=== PATIENT | male | born 1940 | race Caucasian/White ===

== ENCOUNTER 2018-08-09 16:40 | Inpatient (IN) ==
[2018-08-09] MEDS ORDERED: Ipratropium/Albuterol Neb 3 ML IH ONE (17:10)
--- NOTE | 2018-08-09 17:15 | Emergency Department Note ---
Disposition Clinical Impression: Cough Disposition: Still a Patient Condition: Good Referrals: Faye Sepulveda ETCHER HAND [Primary Care Provider] - Forms: ED Satisfaction Letter Time of Disposition: 19:09 General Adult HPI - General Chief complaint: ED Shortness of Breath/Dyspnea Stated complaint: Pneumonia,TAMMY Time Seen by Provider: 08/09/18 16:57 Source: patient Mode of arrival: ambulatory Limitations: no limitations - History of Present Illness HPI Narrative: This is a 78-year-old male with no significant past medical history who comes to emergency department stating that he has had a cough for 3 weeks, went to urgent care 4 days ago and received some symptomatic treatment, including prednisolone and an albuterol inhaler, then saw his regular doctor yesterday. Regular doctor stated that he appeared to have a left sided pneumonia and started him on levofloxacin. He reports no improvement in the cough and states that he has not been able to sleep for the last 7 days or so. Pain Scale: 0 - Related Data Home Medications Medication Instructions Recorded Confirmed Atenolol 08/06/18 Cinnamon 08/06/18 Coq10 08/06/18 Dyazide 08/06/18 Januvia 08/06/18 Lisinopril 08/06/18 Norvasc 08/06/18 Simvastatin 08/06/18 Turmeric 08/06/18 Vitamin C 08/06/18 Vitamin D3 08/06/18 Vitamin E 08/06/18 metFORMIN 08/06/18 Previous Rx's Medication Instructions Recorded Promethazine/Dextromethorphan 5 ml PO Q6HR PRN #120 ml 08/06/18 [Promethazine-Dm Syrup] cephALEXin [Keflex] 500 mg PO QID #40 capsule 08/06/18 methylPREDNISolone [Medrol] 4 mg PO TAPER #21 tablet 08/06/18 Allergies Allergy/AdvReac Type Severity Reaction Status Date / Time Tetanus Vaccines and Toxoid Allergy Hives Verified 08/09/18 16:46 All systems ED: reviewed and negative except as stated. Respiratory: Reports: cough, dyspnea Past Medical History - Past Medical History Medical history: Reports: diabetes, hypertension Psychiatric history: Reports: no psych history - Social History Smoking Status: Never smoker Smokeless Tobacco Status: No Alcohol use: Reports: none Physical Exam - General Limitations: no limitations General appearance: alert, in no apparent distress - Head Head exam: atraumatic, normocephalic, normal inspection - Eye Eye exam: Present: normal appearance, PERRL, EOMI - Chest Chest inspection: Present: normal inspection, symmetric chest wall rise - Respiratory Respiratory exam: Present: other (There are rhonchi in the left apex and base, coarse crackles in the right apex and base). Absent: respiratory distress, wheezes - Cardiovascular Cardiovascular exam: Present: regular rate, normal rhythm, normal heart sounds - Abdominal Exam Abdominal exam: Present: soft, Non-Tender. Absent: tenderness, distention, guarding, rebound, rigidity - Extremities Exam Extremities exam: Present: normal inspection, full ROM. Absent: tenderness, pedal edema - Neurological Exam Neurological exam: Present: alert, oriented X3 - Psychiatric Psychiatric exam: Present: normal affect, normal mood - Skin Skin exam: Present: warm, dry, intact, normal color Course Course Narrative: This is a 78-year-old male previously diagnosed with pneumonia but still with cough and shortness of breath. Vital Signs Temperature 97.8 F 08/09/18 16:43 Pulse Rate 82 08/09/18 16:43 Respiratory Rate 16 08/09/18 16:43 Blood Pressure 192/89 08/09/18 16:43 O2 Sat by Pulse Oximetry 88 08/09/18 16:43 Temperature 97.8 F 08/09/18 16:43 Pulse Rate 82 08/09/18 16:43 Respiratory Rate 16 08/09/18 17:48 Blood Pressure 192/89 08/09/18 16:43 O2 Sat by Pulse Oximetry 93 08/09/18 17:48 Oxygen Delivery Oxygen Delivery Room Air Medical Decision Making - [facility] Narrative Medical decision making narrative: This is a 78-year-old male with a persistent cough for 3 weeks it was provisionally diagnosed as possible pneumonia given a chest x-ray obtained 4 days ago. When I look at the chest x-ray, I find it quite unimpressive. Because of concern for a possible serious etiology, I ordered a chest CT with contrast. Patient was signed out to Dr. Munson and coworkers at 7 PM. - Lab Data Lab results reviewed: Yes I reviewed the patient's lab results. Lab results narrative: CBC shows leukocytosis of 14.8 thrombocytosis at 49.6 D-dimer was below threshold at 404 Result diagrams: 08/09/18 17:18 08/09/18 17:18 Lab Results 08/09/18 08/09/18 08/09/18 Range/Units 17:18 17:18 17:18 WBC 14.8 H (4.3-11.1) K/mcL RBC 5.53 H (4.19-5.50) M/mcL Hgb 15.9 (12.9-16.9) g/dL Hct 46.9 (37.5-50.1) % MCV 84.8 (83.0-100.0) fL MCH 28.8 (28.0-33.3) pg MCHC 33.9 (31.6-35.5) g/dL RDW 13.0 (11.5-14.5) % Plt Count 496 H (140-400) K/mcL MPV 9.5 (9.4-12.4) fL Immature Gran % 0.6 (0-4) % Seg Neutrophils % 82.4 % Lymphocytes % 10.0 % Monocytes % 6.1 % Eosinophils % 0.6 % Basophils % 0.3 % Neutrophils # 12.2 H (1.6-8.9) K/mcL Lymphocytes # 1.5 (0.6-4.6) K/mcL Monocytes # 0.9 (0.0-1.3) K/mcL Eosinophils # 0.1 (0.0-0.6) K/mcL Basophils # 0.1 (0.0-0.2) K/mcL D-Dimer (0-500) ng/mLFEU Sodium 138 (136-145) mEq/L Potassium 3.8 (3.5-5.1) mEq/L Chloride 98 (98-107) mEq/L Carbon Dioxide 29 (23-29) mEq/L BUN 19 (8-23) mg/dL Creatinine 1.15 (0.70-1.30) mg/dL Est GFR ( Amer) > 60 (> 60) Est GFR (Non-Af Amer) > 60 (> 60) BUN/Creatinine Ratio 17 (6-26) Glucose 240 H (70-105) mg/dL Calculated Osmolality 296 (280-300) Lactic Acid 1.6 (0.5-2.2) mmol/L Calcium 9.8 (8.6-10.3) mg/dL Troponin I < 0.03 (< 0.04) ng/mL 09/11/18 Range/Units 17:20 WBC (4.3-11.1) K/mcL RBC (4.19-5.50) M/mcL Hgb (12.9-16.9) g/dL Hct (37.5-50.1) % MCV (83.0-100.0) fL MCH (28.0-33.3) pg MCHC (31.6-35.5) g/dL RDW (11.5-14.5) % Plt Count (140-400) K/mcL MPV (9.4-12.4) fL Immature Gran % (0-4) % Seg Neutrophils % % Lymphocytes % % Monocytes % % Eosinophils % % Basophils % % Neutrophils # (1.6-8.9) K/mcL Lymphocytes # (0.6-4.6) K/mcL Monocytes # (0.0-1.3) K/mcL Eosinophils # (0.0-0.6) K/mcL Basophils # (0.0-0.2) K/mcL D-Dimer 404 (0-500) ng/mLFEU Sodium (136-145) mEq/L Potassium (3.5-5.1) mEq/L Chloride (98-107) mEq/L Carbon Dioxide (23-29) mEq/L BUN (8-23) mg/dL Creatinine (0.70-1.30) mg/dL Est GFR ( Amer) (> 60) Est GFR (Non-Af Amer) (> 60) BUN/Creatinine Ratio (6-26) Glucose (70-105) mg/dL Calculated Osmolality (280-300) Lactic Acid (0.5-2.2) mmol/L Calcium (8.6-10.3) mg/dL Troponin I (< 0.04) ng/mL - EKG Data EKG #1 EKG attestation: Yes I reviewed and interpreted this EKG. EKG results narrative: ECG shows a sinus rhythm, right axis deviation, 79 bpm, right bundle branch block, no ST abnormalities
[2018-08-09 17:38] LABS: Basophils # 0.1 K/mcL (0.0-0.2); Basophils % 0.3 %; Eosinophils # 0.1 K/mcL (0.0-0.6); Eosinophils % 0.6 %; Hematocrit 46.9 % (37.5-50.1); Hemoglobin 15.9 g/dL (12.9-16.9); Immature Granulocytes % 0.6 % (0-4); Lymphocytes # 1.5 K/mcL (0.6-4.6); Mean Corpuscular HGB Conc 33.9 g/dL (31.6-35.5); Mean Corpuscular Hemoglobin 28.8 pg (28.0-33.3); Mean Corpuscular Volume 84.8 fL (83.0-100.0); Mean Platelet Volume 9.5 fL (9.4-12.4); Monocytes # 0.9 K/mcL (0.0-1.3); Monocytes % 6.1 %; Neutrophils # 12.2 K/mcL (1.6-8.9); Platelet Count 496 K/mcL (140-400); Red Blood Count 5.53 M/mcL (4.19-5.50); Segmented Neutrophils % 82.4 %
[2018-08-09 17:59] LABS: BUN/Creatinine Ratio 17 (6-26); Blood Urea Nitrogen 19 mg/dL (8-23); Calcium 9.8 mg/dL (8.6-10.3); Carbon Dioxide 29 mEq/L (23-29); Chloride 98 mEq/L (98-107); Glucose 240 mg/dL (70-105); Osmolality,Calculated 296 (280-300); Potassium 3.8 mEq/L (3.5-5.1); Sodium 138 mEq/L (136-145); Troponin I < 0.03 ng/mL (< 0.04); eGFR For Non-African Americans > 60 (> 60)
[2018-08-09] MEDS ORDERED: Isovue-370 500 ML INFUS..BTL IV ONE (18:09)
--- NOTE | 2018-08-09 19:07 | Emergency Department Note ---
Disposition Clinical Impression: Cough, Hypoxia Community acquired pneumonia Qualifiers: Laterality: unspecified laterality Qualified Code(s): J18.9 - Pneumonia, unspecified organism Disposition: Admitted As Inpatient Condition: Good Referrals: Faye Sepulveda CNP [Primary Care Provider] - Forms: ED Satisfaction Letter Time of Disposition: 20:07 General Adult HPI - General Chief complaint: ED Shortness of Breath/Dyspnea Stated complaint: Pneumonia,TAMMY Time Seen by Provider: 08/09/18 16:57 Source: patient Mode of arrival: ambulatory Limitations: no limitations Nursing Notes Reviewed: Yes Vital Signs Reviewed: Yes - History of Present Illness HPI Narrative: Patient was signed out to me by Dr. Shafer pending CT imaging and final disposition. Please see his note for further details. Pain Scale: 0 - Related Data Home Medications Medication Instructions Recorded Confirmed Atenolol 08/06/18 Cinnamon 08/06/18 Coq10 08/06/18 Dyazide 08/06/18 Januvia 08/06/18 Lisinopril 08/06/18 Norvasc 08/06/18 Simvastatin 08/06/18 Turmeric 08/06/18 Vitamin C 08/06/18 Vitamin D3 08/06/18 Vitamin E 08/06/18 metFORMIN 08/06/18 Previous Rx's Medication Instructions Recorded Promethazine/Dextromethorphan 5 ml PO Q6HR PRN #120 ml 08/06/18 [Promethazine-Dm Syrup] cephALEXin [Keflex] 500 mg PO QID #40 capsule 08/06/18 methylPREDNISolone [Medrol] 4 mg PO TAPER #21 tablet 08/06/18 Allergies Allergy/AdvReac Type Severity Reaction Status Date / Time Tetanus Vaccines and Toxoid Allergy Hives Verified 08/09/18 16:46 All systems ED: reviewed and negative except as stated. Respiratory: Reports: cough, dyspnea Past Medical History - Past Medical History Attestation: Yes The following information was validated with the patient. Source: patient, obtained from family Medical history: Reports: diabetes, hypertension Psychiatric history: Reports: no psych history - Social History Smoking Status: Never smoker Smokeless Tobacco Status: No Alcohol use: Reports: none Physical Exam - General Limitations: no limitations General appearance: alert, in no apparent distress - Head Head exam: atraumatic, normocephalic, normal inspection - Eye Eye exam: Present: normal appearance, PERRL, EOMI - ENT ENT exam: normal exam, normal oropharynx, mucous membranes moist - Neck Neck exam: Present: normal inspection, full ROM, trachea midline - Chest Chest inspection: Present: normal inspection, symmetric chest wall rise - Respiratory Respiratory exam: Present: other (hypoxia). Absent: respiratory distress, wheezes - Expanded Respiratory Exam Location: rales: Right, Left, Lower, rhonchi: Lower, Right, Left - Cardiovascular Cardiovascular exam: Present: regular rate, normal rhythm, normal heart sounds - Abdominal Exam Abdominal exam: Present: soft, Non-Tender, normal bowel sounds. Absent: tenderness, distention, guarding, rebound, rigidity - Extremities Exam Extremities exam: Present: normal inspection, full ROM, normal capillary refill. Absent: tenderness, pedal edema - Back Exam Back exam: Present: normal inspection, full ROM. Absent: tenderness - Neurological Exam Neurological exam: Present: alert, oriented X3 - Expanded Neurological Exam Coma Scale Eye Opening: Spontaneous Coma Scale Motor Response: Obeys Commands Coma Scale Verbal Response: Oriented Coma Scale Total: 15 - Psychiatric Psychiatric exam: Present: normal affect, normal mood - Skin Skin exam: Present: warm, dry, intact, normal color. Absent: rash, cyanosis, diaphoresis Course Course Narrative: Patient was signed out to me by Dr. Shafer pending CT imaging and final disposition. Please see his note for further details. In short, Jesus is a 78-year-old male who come to emergency department with a cough for several weeks. Recently diagnosed with possible pneumonia versus atelectasis at urgent care and placed on Zpak with medrol dose pack and inhaler. Reported no improvement. He saw his primary care provider yesterday and was prescribed levofloxacin in which he has only taken one day worth. Review of his labs shows a mild leukocytosis. His chest x-ray shows possible actelectasis. CT of the chest with contrast was ordered to better evaluate for any further etiology. - Reevaluation(s) Reevaluation #1: CT scan confirms bilateral pneumonia. On reevaluation patient is hypoxic 88% on room air after breathing treatment. Crackles to bilateral bases. Placing him on 2 liter nasal cannula has brought his oxygen level up to 94%. Patient is non-septic appearing. He is awake alert and oriented to person place and time. Patient has a history of hypertension and is due for his amlodipine 10 mg and his atenolol 50 mg. Given his symptoms patient would benefit admission and further management. Patient took a dose of Levaquin orally this morning at 6 AM. Will continue with oral medication on admission. Patient also recently finished azithromycin prior to starting Levaquin. No recent hospitalization. Impression is community acquired pneumonia and hypoxia. Time: 20:05 - Consultations Consultation #1: Spoke with on-call hospitalist dago Parker to admit for CAP and hypoxia. Agrees with continuing oral Levaquin. Requesting blood cultures understanding patient has already taken 1st dose this morning. Time: 20:18 Vital Signs Temperature 97.8 F 08/09/18 16:43 Pulse Rate 82 08/09/18 16:43 Respiratory Rate 16 08/09/18 16:43 Blood Pressure 192/89 08/09/18 16:43 O2 Sat by Pulse Oximetry 88 08/09/18 16:43 Temperature 97.8 F 08/09/18 16:43 Pulse Rate 82 08/09/18 16:43 Respiratory Rate 16 08/09/18 17:48 Blood Pressure 192/89 08/09/18 16:43 O2 Sat by Pulse Oximetry 93 08/09/18 17:48 Oxygen Delivery Oxygen Delivery Room Air Medical Decision Making - MDM Narrative Medical decision making narrative: Patient was discussed with my attending physician who agrees with ED management and final disposition. They independently evaluated the patient. Please refer to their attestation to this encounter for additional information. This note was generated by [employer] voice recognition software and as a result grammatical or spelling errors may occur using this program. - Medical Records Medical records reviewed: Yes I reviewed the patient's medical records. - Lab Data Lab results reviewed: Yes I reviewed the patient's lab results. Result diagrams: 08/09/18 17:18 08/09/18 17:18 Lab Results 08/09/18 08/09/18 08/09/18 Range/Units 17:18 17:18 17:18 WBC 14.8 H (4.3-11.1) K/mcL RBC 5.53 H (4.19-5.50) M/mcL Hgb 15.9 (12.9-16.9) g/dL Hct 46.9 (37.5-50.1) % MCV 84.8 (83.0-100.0) fL MCH 28.8 (28.0-33.3) pg MCHC 33.9 (31.6-35.5) g/dL RDW 13.0 (11.5-14.5) % Plt Count 496 H (140-400) K/mcL MPV 9.5 (9.4-12.4) fL Immature Gran % 0.6 (0-4) % Seg Neutrophils % 82.4 % Lymphocytes % 10.0 % Monocytes % 6.1 % Eosinophils % 0.6 % Basophils % 0.3 % Neutrophils # 12.2 H (1.6-8.9) K/mcL Lymphocytes # 1.5 (0.6-4.6) K/mcL Monocytes # 0.9 (0.0-1.3) K/mcL Eosinophils # 0.1 (0.0-0.6) K/mcL Basophils # 0.1 (0.0-0.2) K/mcL D-Dimer (0-500) ng/mLFEU Sodium 138 (136-145) mEq/L Potassium 3.8 (3.5-5.1) mEq/L Chloride 98 (98-107) mEq/L Carbon Dioxide 29 (23-29) mEq/L BUN 19 (8-23) mg/dL Creatinine 1.15 (0.70-1.30) mg/dL Est GFR ( Amer) > 60 (> 60) Est GFR (Non-Af Amer) > 60 (> 60) BUN/Creatinine Ratio 17 (6-26) Glucose 240 H (70-105) mg/dL Calculated Osmolality 296 (280-300) Lactic Acid 1.6 (0.5-2.2) mmol/L Calcium 9.8 (8.6-10.3) mg/dL Troponin I < 0.03 (< 0.04) ng/mL 08/09/18 Range/Units 17:20 WBC (4.3-11.1) K/mcL RBC (4.19-5.50) M/mcL Hgb (12.9-16.9) g/dL Hct (37.5-50.1) % MCV (83.0-100.0) fL MCH (28.0-33.3) pg MCHC (31.6-35.5) g/dL RDW (11.5-14.5) % Plt Count (140-400) K/mcL MPV (9.4-12.4) fL Immature Gran % (0-4) % Seg Neutrophils % % Lymphocytes % % Monocytes % % Eosinophils % % Basophils % % Neutrophils # (1.6-8.9) K/mcL Lymphocytes # (0.6-4.6) K/mcL Monocytes # (0.0-1.3) K/mcL Eosinophils # (0.0-0.6) K/mcL Basophils # (0.0-0.2) K/mcL D-Dimer 404 (0-500) ng/mLFEU Sodium (136-145) mEq/L Potassium (3.5-5.1) mEq/L Chloride (98-107) mEq/L Carbon Dioxide (23-29) mEq/L BUN (8-23) mg/dL Creatinine (0.70-1.30) mg/dL Est GFR ( Amer) (> 60) Est GFR (Non-Af Amer) (> 60) BUN/Creatinine Ratio (6-26) Glucose (70-105) mg/dL Calculated Osmolality (280-300) Lactic Acid (0.5-2.2) mmol/L Calcium (8.6-10.3) mg/dL Troponin I (< 0.04) ng/mL - Radiology Data Radiology results reviewed: Yes I reviewed the patient's radiology results. Chest CT 08/09/18 18:09 IMPRESSION: Scattered bilateral airspace disease which likely represents pneumonia. Consider follow-up chest CT in 3 months to ensure resolution. D/ / En Villa MD / En Villa MD Interpreting Provider: En Villa MD
[2018-08-09] MEDS ORDERED: amLODIPine 5 MG TABLET PO STA (20:08)
--- NOTE | 2018-08-09 20:18 | Emergency Department Note ---
Disposition Clinical Impression: Cough, Community acquired pneumonia, Hypoxia Disposition: Admitted As Inpatient Condition: Good Referrals: Faye Sepulveda BEE RAISER [Primary Care Provider] - Forms: ED Satisfaction Letter General Adult HPI - General Chief complaint: ED Shortness of Breath/Dyspnea Stated complaint: Pneumonia,TAMMY Time Seen by Provider: 08/09/18 16:57 Source: patient Mode of arrival: ambulatory Limitations: no limitations Nursing Notes Reviewed: Yes Vital Signs Reviewed: Yes - History of Present Illness Pain Scale: 0 - Related Data Home Medications Medication Instructions Recorded Confirmed Atenolol 08/06/18 Cinnamon 08/06/18 Coq10 08/06/18 Dyazide 08/06/18 Januvia 08/06/18 Lisinopril 08/06/18 Norvasc 08/06/18 Simvastatin 08/06/18 Turmeric 08/06/18 Vitamin C 08/06/18 Vitamin D3 08/06/18 Vitamin E 08/06/18 metFORMIN 08/06/18 Previous Rx's Medication Instructions Recorded Promethazine/Dextromethorphan 5 ml PO Q6HR PRN #120 ml 08/06/18 [Promethazine-Dm Syrup] cephALEXin [Keflex] 500 mg PO QID #40 capsule 08/06/18 methylPREDNISolone [Medrol] 4 mg PO TAPER #21 tablet 08/06/18 Allergies Allergy/AdvReac Type Severity Reaction Status Date / Time Tetanus Vaccines and Toxoid Allergy Hives Verified 08/09/18 16:46 Respiratory: Reports: cough, dyspnea Past Medical History - Past Medical History Medical history: Reports: diabetes, hypertension Psychiatric history: Reports: no psych history - Social History Smoking Status: Never smoker Smokeless Tobacco Status: No Alcohol use: Reports: none Physical Exam - General Limitations: no limitations General appearance: alert, in no apparent distress Course Vital Signs Temperature 97.8 F 08/09/18 16:43 Pulse Rate 82 08/09/18 16:43 Respiratory Rate 16 08/09/18 16:43 Blood Pressure 192/89 08/09/18 16:43 O2 Sat by Pulse Oximetry 88 08/09/18 16:43 Temperature 97.8 F 08/09/18 16:43 Pulse Rate 82 08/09/18 16:43 Respiratory Rate 16 08/09/18 17:48 Blood Pressure 192/89 08/09/18 16:43 O2 Sat by Pulse Oximetry 93 08/09/18 17:48 Oxygen Delivery Oxygen Delivery Room Air Medical Decision Making - Medical Records Medical records reviewed: Yes I reviewed the patient's medical records. - Lab Data Lab results reviewed: Yes I reviewed the patient's lab results. Result diagrams: 08/09/18 17:18 08/09/18 17:18 Lab Results 08/09/18 08/09/18 08/09/18 Range/Units 17:18 17:18 17:18 WBC 14.8 H (4.3-11.1) K/mcL RBC 5.53 H (4.19-5.50) M/mcL Hgb 15.9 (12.9-16.9) g/dL Hct 46.9 (37.5-50.1) % MCV 84.8 (83.0-100.0) fL MCH 28.8 (28.0-33.3) pg MCHC 33.9 (31.6-35.5) g/dL RDW 13.0 (11.5-14.5) % Plt Count 496 H (140-400) K/mcL MPV 9.5 (9.4-12.4) fL Immature Gran % 0.6 (0-4) % Seg Neutrophils % 82.4 % Lymphocytes % 10.0 % Monocytes % 6.1 % Eosinophils % 0.6 % Basophils % 0.3 % Neutrophils # 12.2 H (1.6-8.9) K/mcL Lymphocytes # 1.5 (0.6-4.6) K/mcL Monocytes # 0.9 (0.0-1.3) K/mcL Eosinophils # 0.1 (0.0-0.6) K/mcL Basophils # 0.1 (0.0-0.2) K/mcL D-Dimer (0-500) ng/mLFEU Sodium 138 (136-145) mEq/L Potassium 3.8 (3.5-5.1) mEq/L Chloride 98 (98-107) mEq/L Carbon Dioxide 29 (23-29) mEq/L BUN 19 (8-23) mg/dL Creatinine 1.15 (0.70-1.30) mg/dL Est GFR ( Amer) > 60 (> 60) Est GFR (Non-Af Amer) > 60 (> 60) BUN/Creatinine Ratio 17 (6-26) Glucose 240 H (70-105) mg/dL Calculated Osmolality 296 (280-300) Lactic Acid 1.6 (0.5-2.2) mmol/L Calcium 9.8 (8.6-10.3) mg/dL Troponin I < 0.03 (< 0.04) ng/mL 08/09/18 Range/Units 17:20 WBC (4.3-11.1) K/mcL RBC (4.19-5.50) M/mcL Hgb (12.9-16.9) g/dL Hct (37.5-50.1) % MCV (83.0-100.0) fL MCH (28.0-33.3) pg MCHC (31.6-35.5) g/dL RDW (11.5-14.5) % Plt Count (140-400) K/mcL MPV (9.4-12.4) fL Immature Gran % (0-4) % Seg Neutrophils % % Lymphocytes % % Monocytes % % Eosinophils % % Basophils % % Neutrophils # (1.6-8.9) K/mcL Lymphocytes # (0.6-4.6) K/mcL Monocytes # (0.0-1.3) K/mcL Eosinophils # (0.0-0.6) K/mcL Basophils # (0.0-0.2) K/mcL D-Dimer 404 (0-500) ng/mLFEU Sodium (136-145) mEq/L Potassium (3.5-5.1) mEq/L Chloride (98-107) mEq/L Carbon Dioxide (23-29) mEq/L BUN (8-23) mg/dL Creatinine (0.70-1.30) mg/dL Est GFR ( Amer) (> 60) Est GFR (Non-Af Amer) (> 60) BUN/Creatinine Ratio (6-26) Glucose (70-105) mg/dL Calculated Osmolality (280-300) Lactic Acid (0.5-2.2) mmol/L Calcium (8.6-10.3) mg/dL Troponin I (< 0.04) ng/mL - Radiology Data Radiology results reviewed: Yes I reviewed the patient's radiology results. Chest CT 08/09/18 18:09 IMPRESSION: Scattered bilateral airspace disease which likely represents pneumonia. Consider follow-up chest CT in 3 months to ensure resolution. D/ / En Villa MD / En Villa MD Interpreting Provider: En Villa MD Critical Care Time Critical Care Time: No Attestation Statement - Attestation Attestation: I, Shailesh Munson MD, personally evaluated this patient and discussed their management with the resident physician. I reviewed the resident's note and agree with the documented findings, medical decision making, and plan of care. This patient was signed out at shift change from Dr. nuñez. Please refer to his note for complete details of the history and physical examination. Patient presented with a 3 week history of a cough. He was apparently seen 5 days ago at an urgent care and had a chest x-ray which showed left lower lobe atelectasis versus infiltrate. Patient was treated with Z-Bereket as well as Medrol Dosepak and inhaler. Symptoms did not improve and he saw his primary care doctor yesterday and was prescribed Levaquin. He took the first dose of Levaquin this morning. He does not have home oxygen and denies any prior history of pneumonia or breathing problems. No history of asthma or COPD. No history of heart problems. He does complain of shortness of breath with any exertion. At shift change patient is awaiting results of a CT of the chest. On examination patient is a well-developed well-nourished well-appearing elderly male in no acute distress. He is alert and oriented 3. There is no cyanosis or diaphoresis. Breath sounds are decreased bilaterally with a few faint lower lung field rales bilaterally. No wheezes. Heart regular rate and rhythm. Abdomen soft and nontender with normal bowel sounds. No pedal edema. Labs reviewed. Mild leukocytosis which is likely secondary to steroids. CT scan of the chest did show scattered bilateral pneumonia. Patient's oxygen saturation staying in the low 90s on oxygen. The oxygen was turned off as he does not have oxygen at home and patient's oxygen saturation dropped down to 88% at rest on the stretcher. Due to his hypoxia patient will need to be admitted for his pneumonia. The hospitalist, Dr. Collins, was consulted and accepted admission of the patient.
[2018-08-09] MEDS ORDERED: GuaiFENesin/Codeine Oral Soln 5 ML UDC PO STA (23:53)
[2018-08-09] MEDS ORDERED: Dextrose Gel 15 GM/37.5 ML TUBE PO PRN ×2 (23:55)
--- NOTE | 2018-08-09 23:59 | Internal Med History&Physical ---
Date of Encounter: 08/10/18 Time of Encounter: 23:59 Internal Medicine - H&P: HPI Chief complaint: cough Admitted From: Home Plans for Post Hospital Care: Home History of present illness: Jesus Trotter is an 87 year old man with hypertension and diabetes who presents to the ER with the complaints of cough and shortness of breath. He states that the symptoms began 3 weeks ago at which time he felt he was developing allergy symptoms and was taking [id number] medications for symptomatic relief as his had just recovered from similar symptoms herself. However it progressed with the sensation of chest congestion, productive cough and generalized malaise. There was no associated chest pain however he became a bit short of breath and had discomfort in his rib cage from the incessant tussive episodes. He went to an urgent care center where he was given prednisolone, albuterol and a course of azithromycin which she says produced no relief. He then saw her primary care physician 2 days ago who started him on levofloxacin which he says he started taking today his first dose of 500 mg. On evaluation in the ER he was hypoxic to 88% on room air requiring 2 L of oxygen per nasal cannula was brought him up to 94%. The rest of his vital signs were within normal limits and his physical exam was remarkable for crackles in bilateral bases. His chest x-ray was not overtly suggestive and a d -dimer was below threshold of positivity so a chest CT was obtained which was suggestive of by basilar infiltrates. He is now admitted for ongoing care given his hypoxic presentation. At this time he states that his only complaint is the bothersome cough he has been having which impedes him from sleeping adequately. He denies chest pain, fever or chills. He denies any sick contact at home other than his who had similar symptoms weeks ago. Past Med Surg Social Fam HX - Past Medical History Medical history: diabetes, hypertension Psychiatric history: no psych history - Social History Smoking Status: Never smoker Smokeless Tobacco Status: No Alcohol use: none Drug use: none - Family History Mother Age: 98 Living Status: Hx Family Cardiac Disorders: Yes Father Hx Family Cancer: Yes (pancreatic) Internal Medicine - H&P: Meds Amlodipine Besylate 10 mg PO DAILY 08/06/18 [History] Ascorbate Calcium [Vitamin C] 500 mg PO DAILY 08/06/18 [History] Atenolol [Tenormin] 50 mg PO BID 08/06/18 [History] Cinnamon Bark [Cinnamon] 500 mg PO DAILY 08/06/18 [History] Lisinopril [Zestril] 40 mg PO DAILY 08/06/18 [History] Simvastatin [Zocor] 20 mg PO HS 08/06/18 [History] SitaGLIPtin [Januvia] 100 mg PO DAILY 08/06/18 [History] Turmeric 1 tab PO DAILY 08/06/18 [History] Ubidecarenone [Coenzyme Q-10] 200 mg PO DAILY 08/06/18 [History] Vitamin E (Dl,Tocopheryl Acet) [Vitamin E] 400 unit PO DAILY 08/06/18 [History] methylPREDNISolone [Medrol] 4 mg PO TAPER #21 tablet 08/06/18 [Rx] Albuterol Sulfate [Proair Hfa] 2 puff IH Q6H PRN 08/09/18 [History] C,E,Zinc,Copper 11/Cpueh8j/Lut [Ocuvite Adult 50 Plus Softgel] 1 each PO DAILY 08/09/18 [History] Levofloxacin [Levaquin] 500 mg PO DAILY 08/09/18 [History] Metformin HCl [Glucophage] 1,000 mg PO QAM 08/09/18 [History] Metformin HCl [Glucophage] 500 mg PO QPM 08/09/18 [History] Multivitamin [One Daily Essential] 1 each PO DAILY 08/09/18 [History] Triamterene/HCTZ 37.5/25mg [Dyazide] 1 each PO QAM 08/09/18 [History] 3 Allergy/AdvReac Type Severity Reaction Status Date / Time Tetanus Vaccines and Toxoid Allergy Hives Verified 08/10/18 00:13 All Systems PM: A 10-system review of systems was performed and is negative for pertinent findings except as documented above in the HPI. - Constitutional Vitals: Temp Pulse Resp BP Pulse Ox 97.8 F 82 18 160/82 92 08/09/18 16:43 08/09/18 21:08 08/09/18 22:34 08/09/18 22:34 08/09/18 21:08 Exam: Vitals: Reviewed General: Well-developed white man laying comfortably in bed in no acute distress. Skin: No lesions or ulcers. HEENT: Moist mucous membranes. No conjunctivae pallor. Neck: No lymphadenopathy. No JVD. No carotid bruits. No palpable thyroid. Chest: Normal thoracic expansion. Bibasilar crackles auscultated. Heart: Normal S1 & S2; rhythmic. No rubs or murmurs. Abdomen: Non-distended, soft and non-tender to palpation. No peritoneal reaction. Extremities: No clubbing, cyanosis or edema. No calf tenderness. Normal distal pulses. Neurological: Awake, alert and oriented to person, place and time. No focal deficits. Psych: Affect appropriate. Internal Med - H&P Results - Labs CBC & Chem 7: 08/09/18 17:18 08/09/18 17:18 - Assessment and plan (1) Acute respiratory failure with hypoxia Current Visit: Yes Status: Acute Assessment and plan: The CT scan was reviewed independently by me and show bilater ill-defined opacities in the lung bases with non-confluent borders more suggestive of an infiltrate not from atelectasis but from a recovering infection. Will maintain on supplemental oxygen and treat the baseline suspected pneumonia with improvement expected. Will give symptomatic relief with duoneb doses overnight for now. Mucolytics ordered. (2) Community acquired pneumonia Current Visit: Yes Status: Acute Assessment and plan: Seems to be bilateral. Could be a post-viral superimposed bacterial complication given the long-standing 3 week history. Atypical agents could also be at play however one would have expected improvement with the course of azithromycin. Will continue levofloxacin 500mg daily; received a dose today at home. Will send urine legionella and Strep antigen testing; sputum culture. Low rate IVF for now to keep up with losses. Qualifiers: Laterality: unspecified laterality Qualified Code(s): J18.9 - Pneumonia, unspecified organism (3) Diabetes Current Visit: Yes Status: Chronic Assessment and plan: Will hold metformin and place on insulin sliding scale for now. Qualifiers: Diabetes mellitus type: type 2 Diabetes mellitus oysterman insulin use: without oysterman use Diabetes mellitus complication status: without complication Qualified Code(s): E11.9 - Type 2 diabetes mellitus without complications (4) Hypertension Current Visit: Yes Status: Chronic Assessment and plan: Well controlled. Will resume oral antihypertensives. Qualifiers: Hypertension type: essential hypertension Qualified Code(s): I10 - Essential (primary) hypertension (5) DVT prophylaxis Current Visit: Yes Status: Acute Assessment and plan: SubQ heparin indicated. - Time Spent With Patient Total time spent is greater than 50% in coordination of care (as documented) at patient's floor/unit and/or counseling patient: Greater than 35 minutes
[2018-08-10] MEDS: Ringers Solution, Lactated 1,000 ML IVC SCH ×2 (01:05→13:01)
[2018-08-10] MEDS: Ipratropium/Albuterol Neb 3 ML IH SCH ×4 (01:08→14:00)
[2018-08-10] MEDS: *HR* Heparin 5,000 UNIT/ML VIAL SQ SCH ×3 (05:55→20:50)
[2018-08-10 06:34] LABS: Basophils # 0.1 K/mcL (0.0-0.2); Basophils % 0.7 %; Eosinophils # 0.2 K/mcL (0.0-0.6); Eosinophils % 1.9 %; Hematocrit 44.1 % (37.5-50.1); Immature Granulocytes % 0.7 % (0-4); Lymphocytes # 2.2 K/mcL (0.6-4.6); Lymphocytes % 17.8 %; Mean Corpuscular Hemoglobin 28.9 pg (28.0-33.3); Monocytes # 1.2 K/mcL (0.0-1.3); Monocytes % 9.9 %; Neutrophils # 8.5 K/mcL (1.6-8.9); Platelet Count 468 K/mcL (140-400); Red Blood Count 5.19 M/mcL (4.19-5.50)
[2018-08-10 06:56] LABS: Alanine Aminotransferase 11 Units/L (7-52); Albumin 3.6 g/dL (3.5-5.7); Albumin/Globulin Ratio 1.2 (1.1-2.2); Alkaline Phosphatase 57 Units/L (34-104); Aspartate Amino Transferase 11 Units/L (13-39); BUN/Creatinine Ratio 19 (6-26); Bilirubin,Total 0.7 mg/dL (0.3-1.0); Blood Urea Nitrogen 19 mg/dL (8-23); Calcium 9.3 mg/dL (8.6-10.3); Carbon Dioxide 26 mEq/L (23-29); Chloride 100 mEq/L (98-107); Glucose 239 mg/dL (70-105); Osmolality,Calculated 294 (280-300); Potassium 3.3 mEq/L (3.5-5.1); Sodium 137 mEq/L (136-145); Total Protein 6.6 g/dL (6.4-8.9); eGFR For Non-African Americans > 60 (> 60)
[2018-08-10] MEDS: amLODIPine 5 MG TABLET PO SCH (07:37)
[2018-08-10] MEDS: Lisinopril 20 MG TABLET PO SCH (07:37)
[2018-08-10] MEDS: Multivit/Ca/Min/Fe/FA 1 TAB TABLET PO SCH (07:37)
[2018-08-10] MEDS: Insulin LISPRO 300 UNITS/3 ML VIAL SQ SCH ×4 (07:38→20:43)
--- NOTE | 2018-08-10 08:09 | Internal Med Progress Note ---
Hospitalist Progress Note - Encounter Date of Encounter: 08/10/18 Time of Encounter: 08:07 - Subjective Interval History: Patient seen and examined at bedside. Patient no acute overnight events. Patient admitted for treatment required pneumonia that failed outpatient therapy. Patient states he continues to feel rough but does not feel worse. Patient denies any chest pain, palpitations, nausea, vomiting, diarrhea. Patient states that he continues to be somewhat short of breath and continues to have frequent cough. Afebrile. - Exam Vitals: Temp Pulse Resp BP Pulse Ox 98.7 F 66 17 179/79 90 08/10/18 07:15 08/10/18 07:15 08/10/18 07:15 08/10/18 07:15 08/10/18 07:47 Exam: Constitutional: No acute distress, Alert Psych: AAO x 3 HEENT: NCAT, EOMI Neck: supple, no JVD Cardio: regular rate and rhythm, +s1s2, no murmurs/rubs/gallops, no JVD Resp: bibasilar crackles and coarse breath sounds, frequent coughing, no respiratory distress Abd: soft, non tender/non distended, positive bowel sound Extremities: no clubbing/cyanosis/edema appreciated Neuro: no focal deficits appreciated - Assessment and Plan (1) Acute respiratory failure with hypoxia Current Visit: Yes Status: Acute Assessment and Plan: -The CT scan was reviewed independently by me and show bilater ill-defined opacities in the lung bases with non-confluent borders more suggestive of an infiltrate not from atelectasis but from a recovering infection. -respiratory failure due to pneumonia; continue abx -pulse ox 88 percent in ed on room air -supplemental oxygen and wean as tolerated -dunoebs -Mucolytics (2) Community acquired pneumonia Current Visit: Yes Status: Acute Assessment and Plan: -Seems to be bilateral. Could be a post-viral superimposed bacterial complication given the long-standing 3 week history -Will continue levofloxacin IV 500mg daily day#2 -urine legionella and Strep antigen negative -follow sputum, blood cx; blood cx ngtd -Incentive Spirometry -ambulate (3) Diabetes Current Visit: Yes Status: Chronic Assessment and Plan: -ssi -accuchecks (4) Hypertension Current Visit: Yes Status: Chronic Assessment and Plan: -Well controlled. -continue oral antihypertensives. (5) DVT prophylaxis Current Visit: Yes Status: Acute Assessment and Plan: SubQ heparin DVT Prophylaxis: hep sq - Time Spent with Patient Total time spent is greater than 50% in coordination of care (as documented) at patient's floor/unit and/or counseling patient: 25 - 35 minutes Internal Medicine: Result - Labs CBC & Chem 7: 08/10/18 04:26 08/10/18 04:26 Labs: Short CBC 08/10/18 Range/Units 04:26 WBC 12.3 H (4.3-11.1) K/mcL Hgb 15.0 (12.9-16.9) g/dL Hct 44.1 (37.5-50.1) % Plt Count 468 H (140-400) K/mcL Neutrophils # 8.5 (1.6-8.9) K/mcL BMP 08/10/18 04:26 Sodium 137 Potassium 3.3 L Chloride 100 Carbon Dioxide 26 BUN 19 Creatinine 1.01 Glucose 239 H Calcium 9.3 Liver Function 08/10/18 Range/Units 04:26 Total Bilirubin 0.7 (0.3-1.0) mg/dL AST 11 L (13-39) Units/L ALT 11 (7-52) Units/L Alkaline Phosphatase 57 (34-104) Units/L Albumin 3.6 (3.5-5.7) g/dL - ABG Interpretation ABG results: PT/INR, D-dimer D-Dimer 404 ng/mLFEU (0-500) 08/09/18 17:20 Consult Discharge Plan - Plan Referrals: Faye Sepulveda, SEISMIC INTERPRETER [Primary Care Provider] - (2) Community acquired pneumonia Qualifiers: Laterality: unspecified laterality Qualified Code(s): J18.9 - Pneumonia, unspecified organism (3) Diabetes Qualifiers: Diabetes mellitus type: type 2 Diabetes mellitus intermediate insulin use: without intermediate use Diabetes mellitus complication status: without complication Qualified Code(s): E11.9 - Type 2 diabetes mellitus without complications (4) Hypertension Qualifiers: Hypertension type: essential hypertension Qualified Code(s): I10 - Essential (primary) hypertension
[2018-08-10] MEDS ORDERED: Levofloxacin 500 MG/100 ML 500 MG/100 ML BAG IVPB SCH (09:00)
[2018-08-10] MEDS: Acetaminophen 325 MG TABLET PO PRN (11:09)
--- NOTE | 2018-08-10 17:46 | Electrocardiograph Report ---
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
--- NOTE | 2018-08-10 17:47 | Electrocardiograph Report ---
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
[2018-08-10] MEDS ORDERED: Acetylcysteine 10% 2 ML INHSOL IH SCH (22:00)
[2018-08-11] MEDS: Ipratropium/Albuterol Neb 3 ML IH PRN (04:15)
[2018-08-11 05:01] LABS: Basophils # 0.1 K/mcL (0.0-0.2); Basophils % 0.8 %; Eosinophils # 0.4 K/mcL (0.0-0.6); Eosinophils % 3.4 %; Hematocrit 44.5 % (37.5-50.1); Hemoglobin 15.3 g/dL (12.9-16.9); Immature Granulocytes % 0.7 % (0-4); Lymphocytes % 18.9 %; Mean Corpuscular HGB Conc 34.4 g/dL (31.6-35.5); Mean Corpuscular Hemoglobin 29.5 pg (28.0-33.3); Mean Corpuscular Volume 85.9 fL (83.0-100.0); Mean Platelet Volume 10.2 fL (9.4-12.4); Monocytes # 0.9 K/mcL (0.0-1.3); Monocytes % 8.4 %; Neutrophils # 7.2 K/mcL (1.6-8.9); Platelet Count 427 K/mcL (140-400); Red Blood Count 5.18 M/mcL (4.19-5.50); Segmented Neutrophils % 67.8 %
[2018-08-11 05:22] LABS: BUN/Creatinine Ratio 16 (6-26); Blood Urea Nitrogen 18 mg/dL (8-23); Calcium 8.9 mg/dL (8.6-10.3); Carbon Dioxide 26 mEq/L (23-29); Chloride 101 mEq/L (98-107); Glucose 267 mg/dL (70-105); Osmolality,Calculated 291 (280-300); Potassium 3.5 mEq/L (3.5-5.1); Sodium 135 mEq/L (136-145); eGFR For Non-African Americans > 60 (> 60)
[2018-08-11] MEDS: *HR* Heparin 5,000 UNIT/ML VIAL SQ SCH ×3 (06:38→21:00)
[2018-08-11] MEDS ORDERED: D5% in Water 1,000 ML IVC PRN (07:49)
[2018-08-11] MEDS ORDERED: *HR* Dextrose 50 % in Water (Syg) 50 ML SYRINGE IVP PRN (07:49)
--- NOTE | 2018-08-11 08:09 | Internal Med Progress Note ---
Hospitalist Progress Note - Encounter Date of Encounter: 08/11/18 Time of Encounter: 08:07 - Subjective Interval History: Patient seen and examined at bedside. Patient states he had a rough night and was short of breath with frequent coughing. Patient has required oxygen supplementations currently on 3 L nasal cannula. Patient denies any chest pain , palpitations, abdominal pain, nausea, vomiting, diarrhea. The patient's been afebrile. He states he has been using incentive spirometer frequently, I encouraged ambulation. - Exam Vitals: Temp Pulse Resp BP Pulse Ox 97.8 F 70 19 182/81 92 08/11/18 08:00 08/11/18 08:00 08/11/18 08:00 08/11/18 08:00 08/11/18 08:00 Exam: Constitutional: No acute distress, Alert Psych: AAO x 3 Neck: supple, no JVD Cardio: regular rate and rhythm, +s1s2 Resp: very coarse breath sounds, frequent coughing continues Abd: soft, non tender/non distended, positive bowel sound Extremities: no clubbing/cyanosis/edema appreciated Neuro: no focal deficits appreciated - Assessment and Plan (1) Acute respiratory failure with hypoxia Current Visit: Yes Status: Acute Assessment and Plan: -The CT scan was reviewed independently by me and show bilater ill-defined opacities in the lung bases with non-confluent borders more suggestive of an infiltrate not from atelectasis but from a recovering infection. -respiratory failure due to pneumonia; continue abx -sputum culture with gram positive cocci -pulse ox 88 percent in ed on room air -supplemental oxygen and wean as tolerated, 4lpm currently -dunoebs -Mucolytics (2) Community acquired pneumonia Current Visit: Yes Status: Acute Assessment and Plan: -Seems to be bilateral. Could be a post-viral superimposed bacterial complication given the long-standing 3 week history -Will continue levofloxacin day#3 -urine legionella and Strep antigen negative -blood cx ngtd -sputum culture with gram positive cocci -Incentive Spirometry -encouraged ambulation (3) Diabetes Current Visit: Yes Status: Chronic Assessment and Plan: -ssi -accuchecks (4) Hypertension Current Visit: Yes Status: Chronic Assessment and Plan: -Well controlled. -continue oral antihypertensives. (5) DVT prophylaxis Current Visit: Yes Status: Acute Assessment and Plan: SubQ heparin - Time Spent with Patient Total time spent is greater than 50% in coordination of care (as documented) at patient's floor/unit and/or counseling patient: 25 - 35 minutes Plan of Care Discussed with: patient Internal Medicine: Result - Labs CBC & Chem 7: 08/11/18 04:09 08/11/18 04:09 Labs: Short CBC 08/11/18 Range/Units 04:09 WBC 10.6 (4.3-11.1) K/mcL Hgb 15.3 (12.9-16.9) g/dL Hct 44.5 (37.5-50.1) % Plt Count 427 H (140-400) K/mcL Neutrophils # 7.2 (1.6-8.9) K/mcL BMP 08/11/18 04:09 Sodium 135 L Potassium 3.5 Chloride 101 Carbon Dioxide 26 BUN 18 Creatinine 1.11 Glucose 267 H Calcium 8.9 - ABG Interpretation ABG results: PT/INR, D-dimer D-Dimer 404 ng/mLFEU (0-500) 08/09/18 17:20 - Impressions Impressions Chest X-Ray 08/11/18 04:28 IMPRESSION: Features of airway inflammation and infectious/inflammatory bronchiolitis similar to prior exams. Consider aspiration an etiology given basilar predominance, tracheobronchial secretions and esophageal features suggesting dysmotility and reflux on prior CT. D/ / Tejas Martinez / Tejas Martinez Interpreting Provider: Tejas Martinez Consult Discharge Plan - Plan Referrals: Faye Sepulveda, SAFETY DIRECTOR [Primary Care Provider] - (2) Community acquired pneumonia Qualifiers: Laterality: unspecified laterality Qualified Code(s): J18.9 - Pneumonia, unspecified organism (3) Diabetes Qualifiers: Diabetes mellitus type: type 2 Diabetes mellitus assistant terminal manager insulin use: without senior care use Diabetes mellitus complication status: without complication Qualified Code(s): E11.9 - Type 2 diabetes mellitus without complications (4) Hypertension Qualifiers: Hypertension type: essential hypertension Qualified Code(s): I10 - Essential (primary) hypertension
[2018-08-11] MEDS: Insulin LISPRO 300 UNITS/3 ML VIAL SQ SCH ×4 (08:10→22:01)
[2018-08-11] MEDS: Multivit/Ca/Min/Fe/FA 1 TAB TABLET PO SCH (08:16)
[2018-08-11] MEDS: amLODIPine 5 MG TABLET PO SCH (08:16)
[2018-08-11] MEDS: Lisinopril 20 MG TABLET PO SCH (08:16)
[2018-08-11] MEDS: Acetaminophen 325 MG TABLET PO PRN (08:33)
[2018-08-11] MEDS ORDERED: Levofloxacin 750 MG/150 ML 750 MG/150 ML BAG IVPB SCH (09:00)
[2018-08-11] MEDS ORDERED: *HR* LORazepam 2 MG/ML VIAL IVP ONE (20:44)
[2018-08-12] MEDS: *HR* Heparin 5,000 UNIT/ML VIAL SQ SCH ×3 (05:19→20:27)
[2018-08-12 05:40] LABS: Basophils # 0.1 K/mcL (0.0-0.2); Basophils % 0.9 %; Eosinophils # 0.4 K/mcL (0.0-0.6); Eosinophils % 4.6 %; Hematocrit 43.1 % (37.5-50.1); Hemoglobin 14.8 g/dL (12.9-16.9); Immature Granulocytes % 0.5 % (0-4); Lymphocytes # 2.2 K/mcL (0.6-4.6); Lymphocytes % 23.8 %; Mean Corpuscular HGB Conc 34.3 g/dL (31.6-35.5); Mean Corpuscular Hemoglobin 29.5 pg (28.0-33.3); Mean Corpuscular Volume 85.9 fL (83.0-100.0); Mean Platelet Volume 10.1 fL (9.4-12.4); Monocytes # 0.9 K/mcL (0.0-1.3); Monocytes % 9.2 %; Neutrophils # 5.7 K/mcL (1.6-8.9); Platelet Count 409 K/mcL (140-400); Red Blood Count 5.02 M/mcL (4.19-5.50); Red Cell Distribution Width 12.9 % (11.5-14.5)
[2018-08-12 05:46] LABS: BUN/Creatinine Ratio 18 (6-26); Blood Urea Nitrogen 21 mg/dL (8-23); Calcium 9.1 mg/dL (8.6-10.3); Carbon Dioxide 24 mEq/L (23-29); Chloride 102 mEq/L (98-107); Glucose 217 mg/dL (70-105); Osmolality,Calculated 292 (280-300); Potassium 3.3 mEq/L (3.5-5.1); Sodium 136 mEq/L (136-145); eGFR For Non-African Americans > 60 (> 60)
[2018-08-12] MEDS: Lisinopril 20 MG TABLET PO SCH (07:56)
[2018-08-12] MEDS: Insulin LISPRO 300 UNITS/3 ML VIAL SQ SCH ×4 (07:56→20:31)
[2018-08-12] MEDS: amLODIPine 5 MG TABLET PO SCH (07:56)
[2018-08-12] MEDS: Multivit/Ca/Min/Fe/FA 1 TAB TABLET PO SCH (07:56)
[2018-08-12] MEDS: levoFLOXacin 750 MG TABLET PO SCH (07:57)
[2018-08-12] MEDS ORDERED: Potassium Chloride Elixir 20 MEQ/15 ML UDC PO ONE (08:03)
--- NOTE | 2018-08-12 08:06 | Internal Med Progress Note ---
Hospitalist Progress Note - Encounter Date of Encounter: 08/12/18 Time of Encounter: 08:04 - Subjective Interval History: Patient seen and examined at bedside. Pt was given ativan last night for sleep and slept well. Pt continues to cough but not as much sputum production. States he continues to use incentive spirometer. Patient was weaned down to 1 L via nasal cannula this morning however evaluation of pulse ox revealed 74% therefore was increased to 5 L with adequate increase in his pulse oximetry to 90%. Discussed with patient and informed him that we will be obtaining CT scan of his chest today. Patient denies any chest pain, nausea, vomiting, diarrhea. Has been afebrile. - Exam Vitals: Temp Pulse Resp BP Pulse Ox 97.7 F 74 20 153/48 91 08/12/18 07:52 08/12/18 07:52 08/12/18 07:52 08/12/18 07:52 08/12/18 07:54 Exam: Constitutional: No acute distress, Alert Psych: AAO x 3 Neck: supple, no JVD Cardio: regular rate and rhythm, +s1s2 Resp: very coarse breath sounds, with decreased air movement today with expiratory wheezing Abd: soft, non tender/non distended, positive bowel sound Extremities: no clubbing/cyanosis/edema appreciated Neuro: no focal deficits appreciated - Assessment and Plan (1) Acute respiratory failure with hypoxia Current Visit: Yes Status: Acute Assessment and Plan: -The CT scan was reviewed independently by me and show bilater ill-defined opacities in the lung bases with non-confluent borders more suggestive of an infiltrate not from atelectasis but from a recovering infection. -respiratory failure due to pneumonia; continue abx -sputum culture with gram positive cocci -pulse ox 74 percent this am on 1L -supplemental oxygen and wean as tolerated, 5lpm currently -resume duonebs -Mucolytics -obtain ct chest to evaluate pneumonia with continued hypoxia -start po prednisone due to decreased air movement with wheezes; possibly underlying copd? (2) Community acquired pneumonia Current Visit: Yes Status: Acute Assessment and Plan: -Seems to be bilateral. Could be a post-viral superimposed bacterial complication given the long-standing 3 week history -Will continue levofloxacin day#4 -urine legionella and Strep antigen negative -blood cx ngtd -sputum culture with gram positive cocci; await final culutre -Incentive Spirometry -encouraged ambulation -ct chest today to evaluate pna in light of continued/worsening hypoxia -resume duonecas (3) Diabetes Current Visit: Yes Status: Chronic Assessment and Plan: -ssi -accuchecks (4) Hypertension Current Visit: Yes Status: Chronic Assessment and Plan: -Well controlled. -continue oral antihypertensives. (5) DVT prophylaxis Current Visit: Yes Status: Acute Assessment and Plan: SubQ heparin DVT Prophylaxis: hep sq - Summary of Assessment and Plan Summary of Assessment and Plan: ct chest today, start po steroids - Time Spent with Patient Total time spent is greater than 50% in coordination of care (as documented) at patient's floor/unit and/or counseling patient: 25 - 35 minutes Plan of Care Discussed with: patient Internal Medicine: Result - Labs CBC & Chem 7: 08/12/18 04:38 08/12/18 04:38 Labs: Short CBC 08/12/18 Range/Units 04:38 WBC 9.4 (4.3-11.1) K/mcL Hgb 14.8 (12.9-16.9) g/dL Hct 43.1 (37.5-50.1) % Plt Count 409 H (140-400) K/mcL Neutrophils # 5.7 (1.6-8.9) K/mcL BMP 08/12/18 04:38 Sodium 136 Potassium 3.3 L Chloride 102 Carbon Dioxide 24 BUN 21 Creatinine 1.15 Glucose 217 H Calcium 9.1 - ABG Interpretation ABG results: PT/INR, D-dimer D-Dimer 404 ng/mLFEU (0-500) 08/09/18 17:20 Consult Discharge Plan - Plan Referrals: Faye Sepulveda, OVER HAULER HELPER [Primary Care Provider] - (2) Community acquired pneumonia Qualifiers: Laterality: unspecified laterality Qualified Code(s): J18.9 - Pneumonia, unspecified organism (3) Diabetes Qualifiers: Diabetes mellitus type: type 2 Diabetes mellitus penitentiary insulin use: without penitentiary use Diabetes mellitus complication status: without complication Qualified Code(s): E11.9 - Type 2 diabetes mellitus without complications (4) Hypertension Qualifiers: Hypertension type: essential hypertension Qualified Code(s): I10 - Essential (primary) hypertension
[2018-08-12] MEDS ORDERED: Ipratropium/Albuterol Neb 3 ML IH PRN (08:07)
[2018-08-12] MEDS: predniSONE 20 MG TABLET PO SCH (08:51)
[2018-08-12] MEDS: Ipratropium/Albuterol Neb 3 ML IH PRN (10:04)
[2018-08-13] MEDS: *HR* Heparin 5,000 UNIT/ML VIAL SQ SCH ×3 (05:35→21:21)
[2018-08-13 07:26] LABS: Basophils # 0.1 K/mcL (0.0-0.2); Basophils % 0.7 %; Eosinophils # 0.2 K/mcL (0.0-0.6); Eosinophils % 1.9 %; Hematocrit 45.2 % (37.5-50.1); Hemoglobin 15.4 g/dL (12.9-16.9); Immature Granulocytes % 0.5 % (0-4); Lymphocytes # 2.9 K/mcL (0.6-4.6); Mean Corpuscular HGB Conc 34.1 g/dL (31.6-35.5); Mean Corpuscular Hemoglobin 28.8 pg (28.0-33.3); Mean Corpuscular Volume 84.6 fL (83.0-100.0); Mean Platelet Volume 10.7 fL (9.4-12.4); Monocytes # 0.7 K/mcL (0.0-1.3); Monocytes % 6.4 %; Neutrophils # 6.8 K/mcL (1.6-8.9); Platelet Count 386 K/mcL (140-400); Red Blood Count 5.34 M/mcL (4.19-5.50); Red Cell Distribution Width 13.2 % (11.5-14.5); Segmented Neutrophils % 63.5 %
[2018-08-13 07:32] LABS: BUN/Creatinine Ratio 18 (6-26); Blood Urea Nitrogen 22 mg/dL (8-23); Calcium 9.3 mg/dL (8.6-10.3); Carbon Dioxide 23 mEq/L (23-29); Chloride 103 mEq/L (98-107); Glucose 207 mg/dL (70-105); Magnesium 2.2 mg/dL (1.6-2.6); Osmolality,Calculated 293 (280-300); Phosphorous 2.8 mg/dL (2.7-4.5); Potassium 3.6 mEq/L (3.5-5.1); Sodium 137 mEq/L (136-145); eGFR For Non-African Americans 59 (> 60)
[2018-08-13] MEDS: levoFLOXacin 750 MG TABLET PO SCH (07:58)
[2018-08-13] MEDS: Multivit/Ca/Min/Fe/FA 1 TAB TABLET PO SCH (07:58)
[2018-08-13] MEDS: Lisinopril 20 MG TABLET PO SCH (07:58)
[2018-08-13] MEDS: predniSONE 20 MG TABLET PO SCH (07:58)
[2018-08-13] MEDS: Insulin LISPRO 300 UNITS/3 ML VIAL SQ SCH ×4 (07:58→21:20)
[2018-08-13] MEDS: amLODIPine 5 MG TABLET PO SCH (07:58)
--- NOTE | 2018-08-13 08:21 | Internal Med Progress Note ---
Hospitalist Progress Note - Encounter Date of Encounter: 08/13/18 Time of Encounter: 08:18 - Subjective Interval History: Patient seen and examined at bedside. Patient reports that he is feeling better however is tired he is unable to sleep last night, requesting something for sleep tonight. Patient states that he continues to cough and is somewhat short of breath when ambulating however this seems to be improving. Patient denies any chest pain, nausea, vomiting, diarrhea. Oxygen 5 L/m upon my arrival trend down with RN to 4 L with adequate pulse oximetry. - Exam Vitals: Temp Pulse Resp BP Pulse Ox 98.8 F 66 16 164/85 93 08/13/18 07:18 08/13/18 07:18 08/13/18 07:18 08/13/18 07:18 08/13/18 07:18 Exam: Constitutional: No acute distress, Alert Psych: AAO x 3 Neck: supple, no JVD Cardio: regular rate and rhythm, +s1s2 Resp: improved air movement, expiratory wheezing improving Abd: soft, non tender/non distended, positive bowel sound Extremities: no clubbing/cyanosis/edema appreciated Neuro: no focal deficits appreciated - Assessment and Plan (1) Acute respiratory failure with hypoxia Current Visit: Yes Status: Acute Assessment and Plan: -The CT scan was reviewed independently by me and show bilater ill-defined opacities in the lung bases with non-confluent borders more suggestive of an infiltrate not from atelectasis but from a recovering infection. -respiratory failure due to pneumonia; continue abx Levaquin day #5 -sputum culture with gram positive cocci -supplemental oxygen and wean as tolerated, 5lpm this am now down to 4lpm -likely will need home oxygen temporairly -continue duonebs -Mucolytics -obtain ct chest with improvement -continue po prednisone (2) Community acquired pneumonia Current Visit: Yes Status: Acute Assessment and Plan: -Seems to be bilateral. Could be a post-viral superimposed bacterial complication given the long-standing 3 week history -Will continue levofloxacin day#5 -urine legionella and Strep antigen negative -blood cx ngtd -sputum culture with gram positive cocci but normal tanesha -Incentive Spirometry -continue encouraged ambulation -ct chest with slightly improved airspace disease -continue duonebs (3) Diabetes Current Visit: Yes Status: Chronic (4) Hypertension Current Visit: Yes Status: Chronic Assessment and Plan: -slightly elevated; will monitor -continue oral antihypertensives. (5) DVT prophylaxis Current Visit: Yes Status: Acute Assessment and Plan: SubQ heparin DVT Prophylaxis: hep sq - Summary of Assessment and Plan Summary of Assessment and Plan: Continue antibiotics, continue steroids, continue ambulation and incentive spirometry, continue to wean supplemental oxygen; will likely need temporary home oxygen but would like to see more improvement on oxygen requirement prior to discharge. - Time Spent with Patient Total time spent is greater than 50% in coordination of care (as documented) at patient's floor/unit and/or counseling patient: 25 - 35 minutes Plan of Care Discussed with: patient Internal Medicine: Result - Labs CBC & Chem 7: 08/13/18 06:36 08/13/18 06:36 Labs: Short CBC 08/13/18 Range/Units 06:36 WBC 10.7 (4.3-11.1) K/mcL Hgb 15.4 (12.9-16.9) g/dL Hct 45.2 (37.5-50.1) % Plt Count 386 (140-400) K/mcL Neutrophils # 6.8 (1.6-8.9) K/mcL BMP 08/13/18 06:36 Sodium 137 Potassium 3.6 Chloride 103 Carbon Dioxide 23 BUN 22 Creatinine 1.19 Glucose 207 H Calcium 9.3 - ABG Interpretation ABG results: PT/INR, D-dimer D-Dimer 404 ng/mLFEU (0-500) 08/09/18 17:20 - Impressions Impressions Chest CT 08/12/18 10:00 IMPRESSION: 1. Persistent patchy airspace disease in both lungs appears slightly improved. A follow-up CT again should be considered in 3 months to ensure resolution. 2. Otherwise, stable chest CT. D/ / 08/12/2018 11:37:45 Ronal Hagen MD / Mary Ghosh Interpreting Provider: Ronal Hagen MD Consult Discharge Plan - Plan Referrals: Faye Sepulveda, JAR CAPPER [Primary Care Provider] - (2) Community acquired pneumonia Qualifiers: Laterality: unspecified laterality Qualified Code(s): J18.9 - Pneumonia, unspecified organism (3) Diabetes Qualifiers: Diabetes mellitus type: type 2 Diabetes mellitus retirement insulin use: without retirement use Diabetes mellitus complication status: without complication Qualified Code(s): E11.9 - Type 2 diabetes mellitus without complications (4) Hypertension Qualifiers: Hypertension type: essential hypertension Qualified Code(s): I10 - Essential (primary) hypertension
[2018-08-13] MEDS ORDERED: Melatonin 3 MG TABLET PO SCH (21:00)
[2018-08-14] MEDS: *HR* Heparin 5,000 UNIT/ML VIAL SQ SCH ×3 (05:15→21:22)
[2018-08-14 06:30] LABS: Basophils # 0.1 K/mcL (0.0-0.2); Basophils % 0.6 %; Eosinophils # 0.2 K/mcL (0.0-0.6); Eosinophils % 2.3 %; Hematocrit 44.1 % (37.5-50.1); Hemoglobin 14.9 g/dL (12.9-16.9); Immature Granulocytes % 0.6 % (0-4); Lymphocytes # 2.9 K/mcL (0.6-4.6); Lymphocytes % 28.4 %; Mean Corpuscular HGB Conc 33.8 g/dL (31.6-35.5); Mean Corpuscular Hemoglobin 28.5 pg (28.0-33.3); Mean Corpuscular Volume 84.3 fL (83.0-100.0); Mean Platelet Volume 10.2 fL (9.4-12.4); Monocytes # 0.7 K/mcL (0.0-1.3); Monocytes % 7.1 %; Neutrophils # 6.3 K/mcL (1.6-8.9); Platelet Count 424 K/mcL (140-400); Red Blood Count 5.23 M/mcL (4.19-5.50); Red Cell Distribution Width 13.2 % (11.5-14.5)
[2018-08-14 06:51] LABS: BUN/Creatinine Ratio 22 (6-26); Blood Urea Nitrogen 25 mg/dL (8-23); Calcium 9.4 mg/dL (8.6-10.3); Carbon Dioxide 22 mEq/L (23-29); Chloride 103 mEq/L (98-107); Glucose 188 mg/dL (70-105); Osmolality,Calculated 293 (280-300); Potassium 3.4 mEq/L (3.5-5.1); Sodium 137 mEq/L (136-145); eGFR For Non-African Americans > 60 (> 60)
--- NOTE | 2018-08-14 07:57 | Internal Med Progress Note ---
Hospitalist Progress Note - Encounter Date of Encounter: 08/14/18 Time of Encounter: 07:55 - Subjective Interval History: Patient seen and examined at bedside. Patient continues to have issues with sleep however melatonin helps slightly last night. Patient reports that he has been coughing much more productive sputum now. Patient weaned down from 5 L/m to 4 L/m today. Continues to be short of breath with exertion however continues to improve the halls which is encouraged. Admits to using incentive spirometer frequently. Patient denies any chest pain, palpitations, nausea, vomiting, diarrhea. Patient has been afebrile. - Exam Vitals: Temp Pulse Resp BP Pulse Ox 97.8 F 68 17 162/83 91 08/14/18 06:38 08/14/18 06:38 08/14/18 06:38 08/14/18 06:38 08/14/18 06:38 Exam: Constitutional: No acute distress, Alert Psych: AAO x 3 Neck: supple, no JVD Cardio: regular rate and rhythm, +s1s2 Resp: much improved air exchange; no wheezing today, no ronchi Abd: soft, non tender/non distended, positive bowel sound Extremities: no clubbing/cyanosis/edema Neuro: no focal deficits appreciated - Assessment and Plan (1) Acute respiratory failure with hypoxia Current Visit: Yes Status: Acute Assessment and Plan: -The CT scan was reviewed independently by me and show bilater ill-defined opacities in the lung bases with non-confluent borders more suggestive of an infiltrate not from atelectasis but from a recovering infection. -respiratory failure due to pneumonia; continue abx Levaquin day #6 -sputum culture with gram positive cocci but normal tanesha -repeat sputum cx with increasing sputum production -supplemental oxygen and wean as tolerated; down to 4lpm from 5 yesterday -likely will need home oxygen temporairly -continue duonebs prn -Mucolytics -ct chest with improvement -continue po prednisone wean down to 10mg (2) Community acquired pneumonia Current Visit: Yes Status: Acute Assessment and Plan: -Seems to be bilateral. Could be a post-viral superimposed bacterial complication given the long-standing 3 week history -Will continue levofloxacin day#5 -urine legionella and Strep antigen negative -blood cx ngtd -sputum culture with gram positive cocci but normal tanesha -repeat cx with increased sputum production -Incentive Spirometry -continue encouraged ambulation -ct chest with slightly improved airspace disease -continue duonebs (3) Diabetes Current Visit: Yes Status: Chronic Assessment and Plan: -ssi -accuchecks (4) Hypertension Current Visit: Yes Status: Chronic Assessment and Plan: -slightly elevated; will monitor -continue oral antihypertensives. (5) DVT prophylaxis Current Visit: Yes Status: Acute Assessment and Plan: SubQ heparin DVT Prophylaxis: hep sq - Summary of Assessment and Plan Summary of Assessment and Plan: Continue to wean supplemental oxygen; will likely need temporary home oxygen but would like to see more improvement on oxygen requirement prior to discharge. - Time Spent with Patient Total time spent is greater than 50% in coordination of care (as documented) at patient's floor/unit and/or counseling patient: 25 - 35 minutes Plan of Care Discussed with: patient Internal Medicine: Result - Labs CBC & Chem 7: 08/14/18 05:27 08/14/18 05:27 Labs: Short CBC 08/14/18 Range/Units 05:27 WBC 10.4 (4.3-11.1) K/mcL Hgb 14.9 (12.9-16.9) g/dL Hct 44.1 (37.5-50.1) % Plt Count 424 H (140-400) K/mcL Neutrophils # 6.3 (1.6-8.9) K/mcL BMP 08/14/18 05:27 Sodium 137 Potassium 3.4 L Chloride 103 Carbon Dioxide 22 L BUN 25 H Creatinine 1.13 Glucose 188 H Calcium 9.4 - ABG Interpretation ABG results: PT/INR, D-dimer D-Dimer 404 ng/mLFEU (0-500) 08/09/18 17:20 Consult Discharge Plan - Plan Referrals: Faye Sepulveda, NUCLEAR REACTOR ENGINEER [Primary Care Provider] - (2) Community acquired pneumonia Qualifiers: Laterality: unspecified laterality Qualified Code(s): J18.9 - Pneumonia, unspecified organism (3) Diabetes Qualifiers: Diabetes mellitus type: type 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
[2018-08-14] MEDS: Lisinopril 20 MG TABLET PO SCH (09:01)
[2018-08-14] MEDS: amLODIPine 5 MG TABLET PO SCH (09:01)
[2018-08-14] MEDS: Multivit/Ca/Min/Fe/FA 1 TAB TABLET PO SCH (09:01)
[2018-08-14] MEDS: levoFLOXacin 750 MG TABLET PO SCH (09:01)
[2018-08-14] MEDS: Insulin LISPRO 300 UNITS/3 ML VIAL SQ SCH ×4 (09:01→21:21)
[2018-08-14] MEDS: predniSONE 20 MG TABLET PO SCH (09:01)
[2018-08-14 12:51] LABS: Adenovirus Not Detected (Not Detect); Bordetella Pertussis Not Detected (Not Detect); Chlamydophila pneumoniae Not Detected (Not Detect); Coronavirus 229E Not Detected (Not Detect); Coronavirus HKU1 Not Detected (Not Detect); Coronavirus NL63 Not Detected (Not Detect); Coronavirus OC43 Not Detected (Not Detect); Human Metapneumovirus Not Detected (Not Detect); Human Rhinovirus/Enterovirus Not Detected (Not Detect); Influenza A Subtype 2009 H1 Not Detected (Not Detect); Influenza A Untypeable Not Detected (Not Detect); Influenza B Not Detected (Not Detect); Mycoplasma pneumoniae Not Detected (Not Detect); Parainfluenza Virus 1 Not Detected (Not Detect); Parainfluenza Virus 2 Not Detected (Not Detect); Parainfluenza Virus 3 Not Detected (Not Detect); Parainfluenza Virus 4 Not Detected (Not Detect); Respiratory Syncytial Virus Not Detected (Not Detect)
[2018-08-14] MEDS: Mirtazapine 15 MG TABLET PO SCH (21:22)
[2018-08-15] MEDS: *HR* Heparin 5,000 UNIT/ML VIAL SQ SCH ×3 (05:32→21:34)
[2018-08-15 07:12] LABS: Basophils # 0.1 K/mcL (0.0-0.2); Basophils % 0.7 %; Eosinophils # 0.3 K/mcL (0.0-0.6); Eosinophils % 2.8 %; Hemoglobin 15.3 g/dL (12.9-16.9); Immature Granulocytes % 0.4 % (0-4); Lymphocytes # 3.2 K/mcL (0.6-4.6); Lymphocytes % 32.8 %; Mean Corpuscular HGB Conc 33.3 g/dL (31.6-35.5); Mean Corpuscular Hemoglobin 28.9 pg (28.0-33.3); Mean Platelet Volume 9.9 fL (9.4-12.4); Monocytes # 0.8 K/mcL (0.0-1.3); Monocytes % 7.7 %; Neutrophils # 5.5 K/mcL (1.6-8.9); Platelet Count 409 K/mcL (140-400); Red Blood Count 5.29 M/mcL (4.19-5.50); Red Cell Distribution Width 13.2 % (11.5-14.5); Segmented Neutrophils % 55.6 %
[2018-08-15 07:32] LABS: BUN/Creatinine Ratio 18 (6-26); Blood Urea Nitrogen 25 mg/dL (8-23); Calcium 9.3 mg/dL (8.6-10.3); Carbon Dioxide 27 mEq/L (23-29); Chloride 103 mEq/L (98-107); Glucose 190 mg/dL (70-105); Magnesium 2.3 mg/dL (1.6-2.6); Osmolality,Calculated 293 (280-300); Potassium 3.9 mEq/L (3.5-5.1); Sodium 137 mEq/L (136-145); eGFR For Non-African Americans 50 (> 60)
[2018-08-15] MEDS: predniSONE 20 MG TABLET PO SCH (07:50)
[2018-08-15] MEDS: Multivit/Ca/Min/Fe/FA 1 TAB TABLET PO SCH (07:50)
[2018-08-15] MEDS: Lisinopril 20 MG TABLET PO SCH ×2 (07:50→08:02)
[2018-08-15] MEDS: levoFLOXacin 750 MG TABLET PO SCH (07:50)
[2018-08-15] MEDS: amLODIPine 5 MG TABLET PO SCH (07:50)
[2018-08-15] MEDS: Insulin LISPRO 300 UNITS/3 ML VIAL SQ SCH ×4 (07:51→21:35)
--- NOTE | 2018-08-15 08:07 | Internal Med Progress Note ---
Hospitalist Progress Note - Encounter Date of Encounter: 08/15/18 Time of Encounter: 08:03 - Subjective Interval History: Patient seen and examined at bedside. P patient slept well with Remeron last night patient states that he continues to feel improved. Still at 4 L/m via nasal cannula. Informed patient he had a jump in his creatinine today and will start IV fluids and I recommended staying an additional day to watch renal function and get home oxygen set up. Patient is agreeable. - Exam Vitals: Temp Pulse Resp BP Pulse Ox 97.7 F 68 18 157/84 93 08/15/18 07:12 08/15/18 07:12 08/15/18 07:12 08/15/18 07:12 08/15/18 07:12 Exam: Constitutional: No acute distress, Alert Psych: AAO x 3 Neck: supple, no JVD Cardio: regular rate and rhythm, +s1s2 Resp: Coarse breath sounds; improved from prior Abd: soft, non tender/non distended, positive bowel sound Extremities: no clubbing/cyanosis/edema Neuro: no focal deficits appreciated - Assessment and Plan (1) Acute respiratory failure with hypoxia Current Visit: Yes Status: Acute Assessment and Plan: -Hypoxic respiratory failure -respiratory failure due to pneumonia; continue abx Levaquin day #7 -sputum culture with gram positive cocci but normal tanesha -repeat sputum cx with few gram positive cocci -supplemental oxygen and wean as tolerated; on 4 L changed to 3.5l during my evaluation and will reevaluate -likely will need home oxygen temporairly -continue duonebs prn -Mucolytics -ct chest with improvement -continue po prednisone through 08/16 -Echo ordered and reviewed; no significant diastolic dysfunction or valvular pathologies -RIP negative (2) Community acquired pneumonia Current Visit: Yes Status: Acute Assessment and Plan: -Seems to be bilateral. Could be a post-viral superimposed bacterial complication given the long-standing 3 week history -Will continue levofloxacin day#7 -urine legionella and Strep antigen negative -blood cx ngtd -sputum culture with gram positive cocci but normal tanesha -repeat cx with with few gram positive cocci -Incentive Spirometry -continue encouraged ambulation -ct chest with slightly improved airspace disease -continue duonebs (3) AMBER (acute kidney injury) Current Visit: Yes Status: Acute Assessment and Plan: Pt with rise in Creatinine to 1.37 today -unclear etiology -Hold gonzalo/hctz -start gentle IVF -check u/a -check FeNa and UPC -AM BMP (4) Diabetes Current Visit: Yes Status: Chronic Assessment and Plan: -ssi -accuchecks (5) Hypertension Current Visit: Yes Status: Chronic Assessment and Plan: -Hold gonzalo and hctz in light of AMBER -hyralazine added prn -monitor (6) DVT prophylaxis Current Visit: Yes Status: Acute Assessment and Plan: SubQ heparin DVT Prophylaxis: hep sq - Summary of Assessment and Plan Summary of Assessment and Plan: We will set up home oxygen; will start IV fluids for acute kidney injury and check urine studies, if creatinine improved tomorrow anticipate discharge home. - Time Spent with Patient Total time spent is greater than 50% in coordination of care (as documented) at patient's floor/unit and/or counseling patient: 25 - 35 minutes Plan of Care Discussed with: family Internal Medicine: Result - Labs CBC & Chem 7: 08/15/18 06:53 08/15/18 06:53 Labs: Short CBC 08/15/18 Range/Units 06:53 WBC 9.8 (4.3-11.1) K/mcL Hgb 15.3 (12.9-16.9) g/dL Hct 46.0 (37.5-50.1) % Plt Count 409 H (140-400) K/mcL Neutrophils # 5.5 (1.6-8.9) K/mcL BMP 08/15/18 06:53 Sodium 137 Potassium 3.9 Chloride 103 Carbon Dioxide 27 BUN 25 H Creatinine 1.37 H Glucose 190 H Calcium 9.3 - ABG Interpretation ABG results: PT/INR, D-dimer D-Dimer 404 ng/mLFEU (0-500) 08/09/18 17:20 - Impressions Impressions Echocardiogram 08/14/18 09:52 Impressions: Sinus rhythm with BBB. LVEF 60%. Normal LV chamber size, wall thickness and systolic function. Mild left ventricular diastolic dysfunction. Normal right ventricular structure and function. Mild aortic regurgitation. No pulmonary hypertension. Estimated RA pressure is 5 mmHg. Left Ventricular Wall Motion: Rest Echo Findings All wall segments showed normal motion. Findings: Study Quality * Technically adequate exam. ECG Findings * Sinus rhythm with BBB. Left Ventricle * LVEF 60%. * Normal LV chamber size, wall thickness and systolic function. * Mild left ventricular diastolic dysfunction. Right Ventricle * Normal right ventricular structure and function. Left Atrium * Normal left atrial size. Right Atrium * Normal right atrial size. Interatrial Septum * Interatrial septum not well evaluated. Aortic Valve * Mildly sclerotic aortic valve leaflets. * Mildly calcified aortic valve leaflets. * Mild aortic regurgitation. * No aortic stenosis. Mitral Valve * Normal mitral valve structure and function. * No mitral regurgitation. Tricuspid Valve * Normal tricuspid valve structure and function. * Trace tricuspid regurgitation. * Estimated RVSP is 20 mmHg. * Estimated RA pressure is 5 mmHg. * No pulmonary hypertension. Pulmonic Valve * Pulmonic valve not well visualized. * Mild pulmonic regurgitation. Aorta * Normally sized aortic root. Pericardium * The pericardium appears normal. IVC * Normal IVC dimensions and inspiratory collapse. 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
[2018-08-15] MEDS: 0.9 % Sodium Chloride 1,000 ML IVC SCH (08:19)
[2018-08-15 11:38] LABS: Protein/Creatinine Ratio,Urine 0.46 mg/mg (0.00-0.20); Sodium, Urine 82.2 mEq/L
[2018-08-15 12:18] LABS: Bilirubin,Urine Negative (Negative); Blood,Urine Negative (Negative); Clarity,Urine Clear (Clear); Color,Urine Yellow (Yellow); Glucose,Urine (UA) 100 mg/dL (Normal); Ketones,Urine Negative (Negative); Leukocyte Esterase,Urine Negative (Negative); Nitrite,Urine Negative (Negative); Protein,Urine 100 mg/dL (Neg-Trace); Specific Gravity,Urine 1.026 (1.010-1.025); Urobilinogen,Urine Normal (Normal)
[2018-08-15 12:22] LABS: Bacteria,Urine None Seen per hpf (None-Few); Hyaline Casts,Urine None Seen per lpf (None-Few); RBC,Urine 0-3 per hpf (0-3); Squamous Epithelial Cell,Urine Few per lpf (None-Few); WBC,Urine 0-3 per hpf (0-3)
--- NOTE | 2018-08-15 13:13 | Pulmonology Consult Note ---
Date of Encounter: 08/15/18 Time of Encounter: 13:00 Assessment and Plan (1) Community acquired pneumonia Current Visit: Yes Status: Acute Patient clinically is getting better and he is on appropriate antibiotic. From pulmonary standpoint he can be treated as outpatient. Patient will need oxygen and I expect he will improve and will not need it all the time. Clinically there is no indication for COPD and I would recommend to stop systemic steroid. I have discussed with primary team that patient has history of the esophageal web and GI evaluation can be done as outpatient since this could be at risk for aspiration. Qualifiers: Laterality: unspecified laterality Qualified Code(s): J18.9 - Pneumonia, unspecified organism (2) Acute respiratory failure with hypoxia Current Visit: Yes Status: Acute Patient is hypoxic from his pneumonia which I expect he will improve. Wean FiO2 as much as possible and 6 minute walk before discharge home. Explained to patient and primary team a follow-up CT in about 2 months then can be evaluated as outpatient and I am hoping he will not need oxygen at bedtime. There is no indication of COPD, however pulmonary function test needs to be done to answer that question which can be done as outpatient. Thank you for consultation History of Present Illness Consult date: 08/15/18 Requesting physician: Junior Toledo Reason for consult: pneumonia Chief complaint: Cough History of present illness: This is a pleasant 78-year-old gentleman with multiple medical problem who presented to the hospital with shortness of breath and cough and he was found to have pneumonia requiring antibiotics and oxygen. Pulmonary was consulted because he needed oxygen upon discharge and also have a follow-up CT as outpatient. Patient denies using oxygen at home and now is requiring 4 L/m. Overall he is feeling better and his chest congestion and productive cough has improved. His shortness of breath has improved as well. Patient also complains of having a web in his esophagus and he has a family history of that with sometimes difficulty swallowing and he said he monitor what he eats. He was non-diagnosed in the past with COPD and denies any significant symptoms before this illness. Past Med Surg Social Fam HX - Past Medical History Medical history: diabetes, hypertension Psychiatric history: no psych history - Social History Smoking Status: Never smoker Smokeless Tobacco Status: No Alcohol use: none Drug use: none - Family History Mother Age: 98 Living Status: Hx Family Cardiac Disorders: Yes Father Hx Family Cancer: Yes (pancreatic) Medications and Allergies Amlodipine Besylate 10 mg PO DAILY 08/06/18 [History] Ascorbate Calcium [Vitamin C] 500 mg PO DAILY 08/06/18 [History] Atenolol [Tenormin] 50 mg PO BID 08/06/18 [History] Cinnamon Bark [Cinnamon] 500 mg PO DAILY 08/06/18 [History] Lisinopril [Zestril] 40 mg PO DAILY 08/06/18 [History] Simvastatin [Zocor] 20 mg PO HS 08/06/18 [History] SitaGLIPtin [Januvia] 100 mg PO DAILY 08/06/18 [History] Turmeric 1 tab PO DAILY 08/06/18 [History] Ubidecarenone [Coenzyme Q-10] 200 mg PO DAILY 08/06/18 [History] Vitamin E (Dl,Tocopheryl Acet) [Vitamin E] 400 unit PO DAILY 08/06/18 [History] methylPREDNISolone [Medrol] 4 mg PO TAPER #21 tablet 08/06/18 [Rx] Albuterol Sulfate [Proair Hfa] 2 puff IH Q6H PRN 08/09/18 [History] C,E,Zinc,Copper 11/Lsasa4g/Lut [Ocuvite Adult 50 Plus Softgel] 1 each PO DAILY 08/09/18 [History] Levofloxacin [Levaquin] 500 mg PO DAILY 08/09/18 [History] Metformin HCl [Glucophage] 1,000 mg PO QAM 08/09/18 [History] Metformin HCl [Glucophage] 500 mg PO QPM 08/09/18 [History] Multivitamin [One Daily Essential] 1 each PO DAILY 08/09/18 [History] Triamterene/HCTZ 37.5/25mg [Dyazide] 1 each PO QAM 08/09/18 [History] 3 Allergy/AdvReac Type Severity Reaction Status Date / Time Tetanus Vaccines and Toxoid Allergy Hives Verified 08/10/18 00:13 All Systems: The remainder of the systems were reviewed and are negative Physical Examination Vital Signs: Vital Signs, Last 4 Hours Temp Pulse Resp BP Pulse Ox 08/15/18 11:02 97.9 F 72 18 131/72 90 General: Patient is in no acute distress. HEENT: Normocephalic atraumatic, pupils are equal round and reactive to light and accommodation, anicteric sclera, nares is patent, mucous membranes moist, no JVD, trachea is midline Cardiovascular: Normal sinus rhythm, S1 and S2 audible, no murmur or rubs Respiratory: Clear to auscultation bilaterally anteriorly and rhonchi in the left base. No acute distress. No wheezing. Patient not using accessory muscles. Abdomen: Soft, nontender, nondistended, positive bowel sounds in all 4 quadrants Extremities: Warm, dry, trace lower extremity edema. Normal capillary refill. Neuro: Alert and oriented and follows commands. Grossly no neuro deficits. Skin: Warm to touch : No obvious abnormalities. Psych: Normal Results - Laboratory Findings CBC and BMP: 08/15/18 06:53 08/15/18 06:53 PT/INR, D-dimer D-Dimer 404 ng/mLFEU (0-500) 08/09/18 17:20 Abnormal lab findings: Abnormal lab results Plt Count 409 K/mcL (140-400) H 08/15/18 06:53 BUN 25 mg/dL (8-23) H 08/15/18 06:53 Creatinine 1.37 mg/dL (0.70-1.30) H 08/15/18 06:53 Est GFR (Non-Af Amer) 50 (> 60) L 08/15/18 06:53 Glucose 190 mg/dL (70-105) H 08/15/18 06:53 POC Glucose 213 mg/dL (70-99) H 08/14/18 16:07 AST 11 Units/L (13-39) L 08/10/18 04:26 Ur Specific [place] 1.026 (1.010-1.025) H 08/15/18 10:59 Urine Protein 100 mg/dL (Neg-Trace) H 08/15/18 10:59 Urine Glucose (UA) 100 mg/dL (Normal) H 08/15/18 10:59 Protein/Creatinin Ratio 0.46 mg/mg (0.00-0.20) H 08/15/18 10:59 Urine Total Protein 51 mg/dL (1-14) H 08/15/18 10:59 - Microbiology Findings Microbiology Findings: Microbiology, Last 48 Hours 08/14/18 09:09 Sputum Culture - Preliminary Sputum - Diagnostic Findings CT scan - chest: report reviewed, image reviewed - Clinical Findings Intake & Output: Intake & Output 08/14/18 08/15/18 08/15/18 23:59 07:59 15:59 Intake Total 240 / 240 0 / 0 120 / 120 Output Total 325 / 325 650 / 650 200 / 200 Balance -85 / -85 -650 / -650 -80 / -80 Weight 77.927 kg Consult Discharge Plan - Plan Referrals: Faye Sepulveda, COLLECTION CARD CLERK [Primary Care Provider] -
[2018-08-15] MEDS ORDERED: Mirtazapine 15 MG TABLET PO SCH (21:00)
[2018-08-15] MEDS: Mirtazapine 15 MG TABLET PO SCH (21:34)
[2018-08-16] MEDS: 0.9 % Sodium Chloride 1,000 ML IVC SCH (01:26)
[2018-08-16 04:45] LABS: Basophils # 0.1 K/mcL (0.0-0.2); Eosinophils # 0.4 K/mcL (0.0-0.6); Eosinophils % 3.2 %; Hematocrit 46.7 % (37.5-50.1); Hemoglobin 15.9 g/dL (12.9-16.9); Immature Granulocytes % 0.5 % (0-4); Lymphocytes # 3.3 K/mcL (0.6-4.6); Lymphocytes % 29.8 %; Mean Corpuscular Hemoglobin 29.8 pg (28.0-33.3); Mean Corpuscular Volume 87.6 fL (83.0-100.0); Mean Platelet Volume 9.9 fL (9.4-12.4); Monocytes # 0.9 K/mcL (0.0-1.3); Monocytes % 7.7 %; Neutrophils # 6.4 K/mcL (1.6-8.9); Platelet Count 386 K/mcL (140-400); Red Blood Count 5.33 M/mcL (4.19-5.50); Red Cell Distribution Width 13.2 % (11.5-14.5); Segmented Neutrophils % 57.8 %
[2018-08-16 05:05] LABS: BUN/Creatinine Ratio 22 (6-26); Blood Urea Nitrogen 29 mg/dL (8-23); Carbon Dioxide 23 mEq/L (23-29); Chloride 108 mEq/L (98-107); Glucose 178 mg/dL (70-105); Magnesium 2.2 mg/dL (1.6-2.6); Osmolality,Calculated 298 (280-300); Phosphorous 3.4 mg/dL (2.7-4.5); Potassium 3.7 mEq/L (3.5-5.1); Sodium 139 mEq/L (136-145); eGFR For Non-African Americans 53 (> 60)
[2018-08-16] MEDS: Ipratropium/Albuterol Neb 3 ML IH PRN (05:42)
[2018-08-16] MEDS: *HR* Heparin 5,000 UNIT/ML VIAL SQ SCH ×2 (06:13→12:42)
[2018-08-16] MEDS: Multivit/Ca/Min/Fe/FA 1 TAB TABLET PO SCH (08:06)
[2018-08-16] MEDS: levoFLOXacin 750 MG TABLET PO SCH (08:06)
[2018-08-16] MEDS: amLODIPine 5 MG TABLET PO SCH (08:06)
[2018-08-16] MEDS: Insulin LISPRO 300 UNITS/3 ML VIAL SQ SCH ×2 (08:06→12:41)
[2018-08-16 11:27] VITALS: BP 124/64
--- NOTE | 2018-08-16 12:27 | Discharge Summary ---
- NOTES TO OUTPATIENT PROVIDER Notes to Outpatient Provider: Patient was hospitalized here with acute respiratory failure and hypoxia related to community-acquired pneumonia. He was started on IV antibiotics and has slowly improved. He however remains hypoxic and would benefit from home oxygen. He was evaluated by pulmonology and they agreed with current treatment plan. Patient was qualified for 3 L home oxygen. He will be discharged today and will complete oral antibiotic course. Patient did have mild acute kidney injury which has improved after his JALEN inhibitor and hydrochlorothiazide have been held. We will recommend holding for another couple of days until his renal function stabilizes. Follow- up CT scan of the chest in 2 months. He will also need basic panel rechecked in 3-4 days. Orders not resulted at time of discharge: Pending orders 08/14/18 09:09 Sputum Culture [Culture,Sputum with Gram Stain] [] Routine Date of Encounter: 08/16/18 Time of Encounter: 12:25 - Discharge Diagnosis (1) Community acquired pneumonia Priority: Primary Status: Acute Qualifiers: Laterality: unspecified laterality Qualified Code(s): J18.9 - Pneumonia, unspecified organism (2) Acute respiratory failure with hypoxia Priority: Secondary Status: Acute (3) Diabetes Priority: Secondary Status: Chronic Qualifiers: Diabetes mellitus type: type 2 Diabetes mellitus teacher visually impaired insulin use: without teacher visually impaired use Diabetes mellitus complication status: without complication Qualified Code(s): E11.9 - Type 2 diabetes mellitus without complications (4) Hypertension Priority: Secondary Status: Chronic Qualifiers: Hypertension type: essential hypertension Qualified Code(s): I10 - Essential (primary) hypertension (5) DVT prophylaxis Priority: Secondary Status: Acute (6) AMBER (acute kidney injury) Priority: Secondary Status: Acute Hospital course: Mr. Trotter is a 78 year old male Patient who was hospitalized here with acute respiratory failure and hypoxia related to community-acquired pneumonia. He was started on IV antibiotics and has slowly improved. He however remains hypoxic and would benefit from home oxygen. He was evaluated by pulmonology and they agreed with current treatment plan. Patient was qualified for 3 L home oxygen. He will be discharged today and will complete oral antibiotic course. Patient did have mild acute kidney injury which has improved after his JALEN inhibitor and hydrochlorothiazide have been held. We will recommend holding for another couple of days until his renal function stabilizes. He will need follow-up CT scan of the chest in 2 months. He will also need basic panel rechecked in 3-4 days. Discharge discussed with: patient - Time Spent with Patient Total time spent providing and/or coordinating discharge services: Greater than 30 minutes (40 min) - Discharge Medications Prescriptions: levoFLOXacin [Levaquin] 750 mg PO DAILY #4 tablet Mirtazapine [Remeron] 15 mg PO HS PRN #30 tablet PRN Reason: Sleep Home Medications: Amlodipine Besylate 10 mg PO DAILY 08/06/18 [History] Ascorbate Calcium [Vitamin C] 500 mg PO DAILY 08/06/18 [History] Atenolol [Tenormin] 50 mg PO BID 08/06/18 [History] Cinnamon Bark [Cinnamon] 500 mg PO DAILY 08/06/18 [History] Lisinopril [Zestril] 40 mg PO DAILY 08/06/18 [History] Simvastatin [Zocor] 20 mg PO HS 08/06/18 [History] SitaGLIPtin [Januvia] 100 mg PO DAILY 08/06/18 [History] Turmeric 1 tab PO DAILY 08/06/18 [History] Ubidecarenone [Coenzyme Q-10] 200 mg PO DAILY 08/06/18 [History] Vitamin E (Dl,Tocopheryl Acet) [Vitamin E] 400 unit PO DAILY 08/06/18 [History] Albuterol Sulfate [Proair Hfa] 2 puff IH Q6H PRN 08/09/18 [History] C,E,Zinc,Copper 11/Fqjro6b/Lut [Ocuvite Adult 50 Plus Softgel] 1 each PO DAILY 08/09/18 [History] Metformin HCl [Glucophage] 1,000 mg PO QAM 08/09/18 [History] Metformin HCl [Glucophage] 500 mg PO QPM 08/09/18 [History] Multivitamin [One Daily Essential] 1 each PO DAILY 08/09/18 [History] Triamterene/HCTZ 37.5/25mg [Dyazide] 1 each PO QAM 08/09/18 [History] Mirtazapine [Remeron] 15 mg PO HS PRN #30 tablet 08/16/18 [Rx] levoFLOXacin [Levaquin] 750 mg PO DAILY #4 tablet 08/16/18 [Rx] Allergies/Adverse Reactions: 3 Allergy/AdvReac Type Severity Reaction Status Date / Time Tetanus Vaccines and Toxoid Allergy Hives Verified 08/10/18 00:13 Date of admission: 08/10/18 08:20 Primary care physician: Faye Sepulveda CNP Consults: 08/15/18 12:31 Consult to Pulmonology [CONS] Routine Consulting Provider: [facility] Reason for Consult: eval of hypoxic respiratory failure and insurance needs pulm eval for home oxygen Call Completed: Yes Discharging clinician: Mary Mckay Anticipated date of discharge: 08/16/18 - Constitutional Vitals: Temp Pulse Resp BP Pulse Ox 98.3 F 67 19 124/64 90 08/16/18 11:25 08/16/18 11:25 08/16/18 11:25 08/16/18 11:25 08/16/18 11:25 Exam: General: Patient is alert, no acute distress, oriented x 3 Respiratory: Good respiratory effort. Coarse breath sounds Cardiovascular: Regular rate and rhythm. s1 and s2 normal No clicks, rubs, gallops, or murmurs. No pedal edema Abdomen: Abdomen is soft, nontender. Bowel sounds are present Neuro: Alert oriented x 3 normal cranial nerves, no focal deficits - Patient Status Disposition: Home, Self-Care Condition: Good Functional capacity at discharge: independent ambulation Overall status at discharge: patient is progressing back to baseline - Ambulatory Orders Ambulatory Orders: CT chest wo con [CT] Time Frame: 2 Months, Facility: [facility], Location: Radiology - Discharge Instructions Instructions: Acute Respiratory Distress Syndrome (DC), Pneumonia (DC) Follow Up With: Faye Sepulveda CNP [Primary Care Provider] - (web request 08/15/2018) Guy Justice MD [Partnered Physician] - (in 2-3 weeks Web request 08/16/2018) Additional Instructions: Hold lisinopril, Dyazide for 3 days - Diet and Activity Activity: increase activity as tolerated, wear oxygen at all times Diet: diabetic diet, low fat, low cholesterol, low salt diet
== END 2018-08-16 14:42 | disposition home or self-care (01) | DRG 193 ==
LOC: EMEROOARM 16:40 → 2ANU 16:40 → SUATTDRO 08-10 08:20
PROVIDERS: ADMIT Family Medicine; ATTEND Internal Medicine